=== PATIENT | female | born 1995 | race African-American/Black ===

== ENCOUNTER 2018-08-20 18:08 | Inpatient (IN) | payer OTHER ==
[2018-08-20] MEDS ORDERED: NACL 0.9% 3 ML SYG IV (19:00)
[2018-08-20] MEDS: morphine 4 MG/ML VIAL IV ×2 (19:05→21:59)
[2018-08-20 19:08] LABS: ADD MAN DIFF? NO
[2018-08-20 19:09] LABS: BASOPHILS % 0.2 % (0.0-2.0); EOSINOPHILS # 0.1 10^3/ul (0.0-0.5); HEMATOCRIT 30.7 % (37.0-47.0); HEMOGLOBIN 11.1 g/dl (12.0-16.0); LYMPHOCYTES # 1.8 10^3/ul (0.8-2.9); LYMPHOCYTES % 39.6 % (15.0-51.0); MEAN CORPUSCULAR HEMOGLOBIN 26.6 pg (29.0-33.0); MEAN CORPUSCULAR HGB CONC 36.2 g/dl (32.0-37.0); MEAN CORPUSCULAR VOLUME 73.4 fl (82.0-101.0); MEAN PLATELET VOLUME 9.2 fl (7.4-10.4); MONOCYTE # 0.3 10^3/ul (0.3-0.9); MONOCYTES % 7.6 % (0.0-11.0); NEUTROPHIL # 2.3 10^3/ul (1.6-7.5); NEUTROPHILS % 50.4 % (39.0-77.0); PLATELET COUNT 189 10^3/UL (140-415); RED BLOOD COUNT 4.18 10^6/ul (4.20-5.40); RED CELL DISTRIBUTION WIDTH 14.8 % (11.5-14.5)
[2018-08-20 19:09] LABS: WHITE BLOOD COUNT 4.5 10^3/ul (4.8-10.8)
[2018-08-20 19:31] LABS: ALANINE AMINOTRANSFERASE 18 IU/L (13-69); ALBUMIN 4.1 g/dl (3.3-4.9); ALBUMIN/GLOBULIN RATIO 1.28; ALKALINE PHOSPHATASE 71 IU/L (42-121); ANION GAP 9 (5-13); ASPARTATE AMINO TRANSFERASE 24 IU/L (15-46); BILIRUBIN,INDIRECT 1.1 mg/dl (0-1.1); BILIRUBIN,TOTAL 1.1 mg/dl (0.2-1.3); BLOOD UREA NITROGEN 3 mg/dl (7-20); CALCIUM 9.4 mg/dl (8.4-10.2); CARBON DIOXIDE 27 mmol/L (21-31); CHLORIDE 105 mmol/L (97-110); CREATININE 0.48 mg/dl (0.44-1.00); Estimated GFR > 60 mL/min (>60); GLUCOSE 89 mg/dl (70-220); POTASSIUM 3.9 mmol/L (3.5-5.1); SODIUM 141 mmol/L (135-144); TOTAL PROTEIN 7.3 g/dl (6.1-8.1)
[2018-08-20] MEDS: ALBUTEROL/IPRATROPIUM (NEB) 3 ML AMP HHN (20:37)
[2018-08-20] MEDS: SOD CHLORIDE 0.9% 1,000 ML IV (21:58)
[2018-08-20] MEDS: HEPARIN 5,000 UNIT/1 ML VIAL SC (22:04)
[2018-08-21] MEDS: morphine 4 MG/ML VIAL IV ×7 (01:04→23:10)
[2018-08-21] MEDS: ACETAMINOPHEN 325 MG TAB PO (04:26)
[2018-08-21 05:18] LABS: ADD MAN DIFF? NO
[2018-08-21 05:23] LABS: BASOPHILS % 0.5 % (0.0-2.0); EOSINOPHILS # 0.1 10^3/ul (0.0-0.5); EOSINOPHILS % 1.7 % (0.0-7.0); HEMOGLOBIN 10.3 g/dl (12.0-16.0); LYMPHOCYTES # 2.2 10^3/ul (0.8-2.9); LYMPHOCYTES % 51.9 % (15.0-51.0); MEAN CORPUSCULAR HEMOGLOBIN 26.1 pg (29.0-33.0); MEAN CORPUSCULAR HGB CONC 35.5 g/dl (32.0-37.0); MEAN CORPUSCULAR VOLUME 73.6 fl (82.0-101.0); MEAN PLATELET VOLUME 9.5 fl (7.4-10.4); MONOCYTE # 0.4 10^3/ul (0.3-0.9); MONOCYTES % 8.6 % (0.0-11.0); NEUTROPHIL # 1.6 10^3/ul (1.6-7.5); NEUTROPHILS % 37.1 % (39.0-77.0); PLATELET COUNT 183 10^3/UL (140-415); RED BLOOD COUNT 3.94 10^6/ul (4.20-5.40); RED CELL DISTRIBUTION WIDTH 14.8 % (11.5-14.5)
[2018-08-21 05:23] LABS: WHITE BLOOD COUNT 4.2 10^3/ul (4.8-10.8)
[2018-08-21 05:30] LABS: HEMOGLOBIN A1C 4.2 % (0-5.9)
[2018-08-21 05:43] LABS: ALANINE AMINOTRANSFERASE 18 IU/L (13-69); ALBUMIN 3.9 g/dl (3.3-4.9); ALBUMIN/GLOBULIN RATIO 1.34; ALKALINE PHOSPHATASE 57 IU/L (42-121); ANION GAP 11 (5-13); ASPARTATE AMINO TRANSFERASE 16 IU/L (15-46); BLOOD UREA NITROGEN 4 mg/dl (7-20); CALCIUM 8.9 mg/dl (8.4-10.2); CARBON DIOXIDE 29 mmol/L (21-31); CHLORIDE 102 mmol/L (97-110); Estimated GFR > 60 mL/min (>60); GLUCOSE 91 mg/dl (70-220); MAGNESIUM 1.7 mg/dl (1.7-2.5); POTASSIUM 3.6 mmol/L (3.5-5.1); SODIUM 142 mmol/L (135-144); TOTAL PROTEIN 6.8 g/dl (6.1-8.1)
[2018-08-21] MEDS: HEPARIN 5,000 UNIT/1 ML VIAL SC ×3 (05:58→23:12)
[2018-08-21] MEDS: OXYCODONE/ACETAMINOPHEN (5/325) TAB PO (06:08)
[2018-08-21] MEDS: ALBUTEROL/IPRATROPIUM (NEB) 3 ML AMP HHN ×3 (07:42→21:42)
[2018-08-21] MEDS: ONDANSETRON 4 MG INJ IV ×2 (09:26→16:15)
[2018-08-21] MEDS: SOD CHLORIDE 0.9% 1,000 ML IV ×3 (12:57→23:10)
[2018-08-22] MEDS: morphine 4 MG/ML VIAL IV ×6 (03:16→21:29)
[2018-08-22 05:24] LABS: ADD MAN DIFF? NO
[2018-08-22 05:30] LABS: BASOPHILS % 0.5 % (0.0-2.0); EOSINOPHILS # 0.1 10^3/ul (0.0-0.5); EOSINOPHILS % 2.1 % (0.0-7.0); HEMATOCRIT 28.2 % (37.0-47.0); HEMOGLOBIN 10.2 g/dl (12.0-16.0); LYMPHOCYTES # 1.8 10^3/ul (0.8-2.9); LYMPHOCYTES % 47.3 % (15.0-51.0); MEAN CORPUSCULAR HEMOGLOBIN 26.4 pg (29.0-33.0); MEAN CORPUSCULAR HGB CONC 36.2 g/dl (32.0-37.0); MEAN CORPUSCULAR VOLUME 72.9 fl (82.0-101.0); MEAN PLATELET VOLUME 9.4 fl (7.4-10.4); MONOCYTE # 0.3 10^3/ul (0.3-0.9); NEUTROPHIL # 1.6 10^3/ul (1.6-7.5); NEUTROPHILS % 42.1 % (39.0-77.0); PLATELET COUNT 171 10^3/UL (140-415); RED BLOOD COUNT 3.87 10^6/ul (4.20-5.40); RED CELL DISTRIBUTION WIDTH 14.9 % (11.5-14.5)
[2018-08-22 05:30] LABS: WHITE BLOOD COUNT 3.8 10^3/ul (4.8-10.8)
[2018-08-22 05:43] LABS: ANION GAP 10 (5-13); BLOOD UREA NITROGEN 3 mg/dl (7-20); CALCIUM 8.9 mg/dl (8.4-10.2); CARBON DIOXIDE 26 mmol/L (21-31); CHLORIDE 106 mmol/L (97-110); CREATININE 0.54 mg/dl (0.44-1.00); Estimated GFR > 60 mL/min (>60); GLUCOSE 109 mg/dl (70-220); POTASSIUM 3.5 mmol/L (3.5-5.1); SODIUM 142 mmol/L (135-144)
[2018-08-22] MEDS: HEPARIN 5,000 UNIT/1 ML VIAL SC ×3 (06:46→21:45)
[2018-08-22] MEDS: ALBUTEROL/IPRATROPIUM (NEB) 3 ML AMP HHN ×3 (07:31→20:07)
[2018-08-22] MEDS: SOD CHLORIDE 0.9% 1,000 ML IV (09:27)
[2018-08-23] MEDS: SOD CHLORIDE 0.9% 1,000 ML IV ×3 (00:50→22:21)
[2018-08-23] MEDS: morphine 4 MG/ML VIAL IV ×7 (02:10→22:22)
[2018-08-23 05:06] LABS: ADD MAN DIFF? NO
[2018-08-23 05:10] LABS: WHITE BLOOD COUNT 4.4 10^3/ul (4.8-10.8)
[2018-08-23 05:10] LABS: BASOPHILS % 0.5 % (0.0-2.0); EOSINOPHILS # 0.1 10^3/ul (0.0-0.5); EOSINOPHILS % 1.6 % (0.0-7.0); HEMATOCRIT 29.3 % (37.0-47.0); HEMOGLOBIN 10.4 g/dl (12.0-16.0); LYMPHOCYTES # 1.7 10^3/ul (0.8-2.9); MEAN CORPUSCULAR HEMOGLOBIN 25.9 pg (29.0-33.0); MEAN CORPUSCULAR HGB CONC 35.5 g/dl (32.0-37.0); MEAN CORPUSCULAR VOLUME 72.9 fl (82.0-101.0); MEAN PLATELET VOLUME 9.7 fl (7.4-10.4); MONOCYTE # 0.4 10^3/ul (0.3-0.9); MONOCYTES % 8.2 % (0.0-11.0); NEUTROPHIL # 2.3 10^3/ul (1.6-7.5); NEUTROPHILS % 51.5 % (39.0-77.0); PLATELET COUNT 165 10^3/UL (140-415); RED BLOOD COUNT 4.02 10^6/ul (4.20-5.40); RED CELL DISTRIBUTION WIDTH 14.9 % (11.5-14.5)
[2018-08-23] MEDS: HEPARIN 5,000 UNIT/1 ML VIAL SC ×3 (06:03→22:24)
[2018-08-23] MEDS: OXYCODONE/ACETAMINOPHEN (5/325) TAB PO (06:07)
[2018-08-23] MEDS: ALBUTEROL/IPRATROPIUM (NEB) 3 ML AMP HHN ×4 (07:43→19:45)
[2018-08-23] MEDS: ONDANSETRON 4 MG INJ IV (11:47)
[2018-08-23] MEDS ORDERED: AL HYDROX/MG HYDROX/SIMETH 30 ML CUP PO (12:30)
[2018-08-23] MEDS: PANTOPRAZOLE (EC) 40 MG TAB PO (14:07)
[2018-08-23] MEDS: ACETAMINOPHEN 325 MG TAB PO (16:33)
[2018-08-24] MEDS: morphine 4 MG/ML VIAL IV ×7 (01:31→22:06)
[2018-08-24] MEDS: PANTOPRAZOLE (EC) 40 MG TAB PO (05:02)
[2018-08-24] MEDS: HEPARIN 5,000 UNIT/1 ML VIAL SC ×3 (05:04→22:16)
[2018-08-24 05:46] LABS: ADD MAN DIFF? NO
[2018-08-24 05:56] LABS: BASOPHILS % 0.4 % (0.0-2.0); EOSINOPHILS # 0.1 10^3/ul (0.0-0.5); EOSINOPHILS % 1.8 % (0.0-7.0); HEMATOCRIT 28.5 % (37.0-47.0); HEMOGLOBIN 10.2 g/dl (12.0-16.0); LYMPHOCYTES # 1.8 10^3/ul (0.8-2.9); LYMPHOCYTES % 35.4 % (15.0-51.0); MEAN CORPUSCULAR HEMOGLOBIN 26.1 pg (29.0-33.0); MEAN CORPUSCULAR HGB CONC 35.8 g/dl (32.0-37.0); MEAN CORPUSCULAR VOLUME 72.9 fl (82.0-101.0); MONOCYTE # 0.4 10^3/ul (0.3-0.9); MONOCYTES % 7.3 % (0.0-11.0); NEUTROPHIL # 2.7 10^3/ul (1.6-7.5); NEUTROPHILS % 54.9 % (39.0-77.0); PLATELET COUNT 164 10^3/UL (140-415); RED BLOOD COUNT 3.91 10^6/ul (4.20-5.40); RED CELL DISTRIBUTION WIDTH 14.7 % (11.5-14.5)
[2018-08-24 06:13] LABS: ANION GAP 12 (5-13); BLOOD UREA NITROGEN 6 mg/dl (7-20); CALCIUM 8.8 mg/dl (8.4-10.2); CARBON DIOXIDE 27 mmol/L (21-31); CHLORIDE 103 mmol/L (97-110); CREATININE 0.51 mg/dl (0.44-1.00); Estimated GFR > 60 mL/min (>60); GLUCOSE 100 mg/dl (70-220); POTASSIUM 3.4 mmol/L (3.5-5.1); SODIUM 142 mmol/L (135-144)
[2018-08-24] MEDS: SOD CHLORIDE 0.9% 1,000 ML IV ×2 (07:59→23:50)
[2018-08-24] MEDS: ALBUTEROL/IPRATROPIUM (NEB) 3 ML AMP HHN ×4 (08:04→19:46)
[2018-08-24] MEDS: ONDANSETRON 4 MG INJ IV (11:00)
[2018-08-24] MEDS: POTASSIUM CHLORIDE (SR) 20 MEQ TAB PO (14:59)
[2018-08-25] MEDS: morphine 4 MG/ML VIAL IV ×8 (01:19→22:46)
[2018-08-25] MEDS: SOD CHLORIDE 0.9% 1,000 ML IV ×3 (03:58→21:12)
[2018-08-25] MEDS: ALBUTEROL/IPRATROPIUM (NEB) 3 ML AMP HHN ×4 (04:04→19:21)
[2018-08-25 05:49] LABS: ANION GAP 7 (5-13); BLOOD UREA NITROGEN 4 mg/dl (7-20); CALCIUM 9.3 mg/dl (8.4-10.2); CARBON DIOXIDE 27 mmol/L (21-31); CHLORIDE 107 mmol/L (97-110); CREATININE 0.55 mg/dl (0.44-1.00); Estimated GFR > 60 mL/min (>60); GLUCOSE 99 mg/dl (70-220); POTASSIUM 3.7 mmol/L (3.5-5.1); SODIUM 141 mmol/L (135-144)
[2018-08-25] MEDS: PANTOPRAZOLE (EC) 40 MG TAB PO (07:02)
[2018-08-25] MEDS: HEPARIN 5,000 UNIT/1 ML VIAL SC ×3 (07:04→22:53)
[2018-08-25] MEDS: ONDANSETRON 4 MG INJ IV (16:25)
[2018-08-25] MEDS: IOHEXOL 100 ML (17:38)
[2018-08-25] MEDS: SOD CHLORIDE 0.9% 100 ML (17:38)
[2018-08-25] MEDS: PIPER-TAZO 3.375 GM IV (PMX) 100 ML IVPB ×2 (18:13→22:46)
[2018-08-26] MEDS: morphine 4 MG/ML VIAL IV ×4 (01:36→10:58)
[2018-08-26] MEDS: DIPHENHYDRAMINE 50 MG INJ IV (01:51)
[2018-08-26 05:01] LABS: ADD MAN DIFF? NO
[2018-08-26] MEDS: PIPER-TAZO 3.375 GM IV (PMX) 100 ML IVPB ×3 (05:05→22:14)
[2018-08-26 05:08] LABS: WHITE BLOOD COUNT 5.4 10^3/ul (4.8-10.8)
[2018-08-26 05:08] LABS: BASOPHILS % 0.2 % (0.0-2.0); EOSINOPHILS # 0.1 10^3/ul (0.0-0.5); EOSINOPHILS % 1.3 % (0.0-7.0); HEMATOCRIT 28.5 % (37.0-47.0); HEMOGLOBIN 10.3 g/dl (12.0-16.0); LYMPHOCYTES # 0.9 10^3/ul (0.8-2.9); LYMPHOCYTES % 17.3 % (15.0-51.0); MEAN CORPUSCULAR HEMOGLOBIN 26.3 pg (29.0-33.0); MEAN CORPUSCULAR HGB CONC 36.1 g/dl (32.0-37.0); MEAN CORPUSCULAR VOLUME 72.9 fl (82.0-101.0); MONOCYTE # 0.4 10^3/ul (0.3-0.9); MONOCYTES % 7.1 % (0.0-11.0); NEUTROPHILS % 73.7 % (39.0-77.0); PLATELET COUNT 144 10^3/UL (140-415); RED BLOOD COUNT 3.91 10^6/ul (4.20-5.40); RED CELL DISTRIBUTION WIDTH 14.6 % (11.5-14.5)
[2018-08-26] MEDS: HEPARIN 5,000 UNIT/1 ML VIAL SC ×3 (05:13→22:17)
[2018-08-26 05:26] LABS: ANION GAP 8 (5-13); BLOOD UREA NITROGEN 4 mg/dl (7-20); CALCIUM 9.1 mg/dl (8.4-10.2); CARBON DIOXIDE 27 mmol/L (21-31); CHLORIDE 107 mmol/L (97-110); CREATININE 0.59 mg/dl (0.44-1.00); Estimated GFR > 60 mL/min (>60); GLUCOSE 88 mg/dl (70-220); POTASSIUM 3.9 mmol/L (3.5-5.1); SODIUM 142 mmol/L (135-144)
[2018-08-26] MEDS: PANTOPRAZOLE (EC) 40 MG TAB PO (06:34)
[2018-08-26] MEDS: ALBUTEROL/IPRATROPIUM (NEB) 3 ML AMP HHN ×3 (07:28→19:50)
[2018-08-26] MEDS ORDERED: morphine 1 MG/ML 30 ML (PCA) IV (11:30)
[2018-08-26] MEDS: SOD CHLORIDE 0.9% 1,000 ML IV ×2 (12:11→18:02)
[2018-08-26] MEDS: morphine 1 MG/ML 30 ML (PCA) IV (12:22)
[2018-08-26] MEDS: ONDANSETRON 4 MG INJ IV (12:27)
[2018-08-26] MEDS: MAGNESIUM CITRATE 300 ML BTL PO (12:30)
[2018-08-27] MEDS: morphine 1 MG/ML 30 ML (PCA) IV ×2 (00:56→13:31)
[2018-08-27] MEDS: DIPHENHYDRAMINE 50 MG INJ IV ×2 (01:37→23:54)
[2018-08-27] MEDS ORDERED: POLYETHYLENE GLYCOL 17 GM PACKET PO (03:30)
[2018-08-27] MEDS: POLYETHYLENE GLYCOL 17 GM PACKET PO (03:43)
[2018-08-27] MEDS: DOCUSATE SODIUM 100 MG CAP PO ×2 (03:43→21:32)
[2018-08-27] MEDS: SOD CHLORIDE 0.9% 1,000 ML IV ×2 (03:44→15:19)
[2018-08-27] MEDS: PANTOPRAZOLE (EC) 40 MG TAB PO (05:15)
[2018-08-27] MEDS: PIPER-TAZO 3.375 GM IV (PMX) 100 ML IVPB ×3 (05:15→21:32)
[2018-08-27] MEDS: HEPARIN 5,000 UNIT/1 ML VIAL SC ×3 (05:26→21:38)
[2018-08-27] MEDS: ALBUTEROL/IPRATROPIUM (NEB) 3 ML AMP HHN ×4 (05:28→20:02)
[2018-08-27] MEDS ORDERED: DOCUSATE SODIUM 100 MG CAP PO (09:00)
[2018-08-27] MEDS: CELECOXIB 100 MG CAP PO ×2 (11:03→21:32)
[2018-08-27] MEDS: ACETAMINOPHEN 325 MG TAB PO (16:16)
[2018-08-27] MEDS: ONDANSETRON 4 MG INJ IV (21:32)
[2018-08-28] MEDS: SOD CHLORIDE 0.9% 1,000 ML IV ×3 (01:41→21:58)
[2018-08-28] MEDS: morphine 1 MG/ML 30 ML (PCA) IV ×2 (01:57→12:00)
[2018-08-28 05:18] LABS: ADD MAN DIFF? NO
[2018-08-28 05:39] LABS: BASOPHILS % 0.6 % (0.0-2.0); EOSINOPHILS # 0.1 10^3/ul (0.0-0.5); EOSINOPHILS % 2.5 % (0.0-7.0); HEMATOCRIT 28.4 % (37.0-47.0); HEMOGLOBIN 10.1 g/dl (12.0-16.0); LYMPHOCYTES # 1.5 10^3/ul (0.8-2.9); LYMPHOCYTES % 43.1 % (15.0-51.0); MEAN CORPUSCULAR HGB CONC 35.6 g/dl (32.0-37.0); MEAN CORPUSCULAR VOLUME 73.2 fl (82.0-101.0); MEAN PLATELET VOLUME 9.7 fl (7.4-10.4); MONOCYTE # 0.3 10^3/ul (0.3-0.9); MONOCYTES % 7.9 % (0.0-11.0); NEUTROPHIL # 1.6 10^3/ul (1.6-7.5); NEUTROPHILS % 45.3 % (39.0-77.0); PLATELET COUNT 126 10^3/UL (140-415); RED BLOOD COUNT 3.88 10^6/ul (4.20-5.40); RED CELL DISTRIBUTION WIDTH 14.6 % (11.5-14.5)
[2018-08-28 05:39] LABS: WHITE BLOOD COUNT 3.5 10^3/ul (4.8-10.8)
[2018-08-28 06:01] LABS: ANION GAP 10 (5-13); BLOOD UREA NITROGEN 4 mg/dl (7-20); CALCIUM 9.3 mg/dl (8.4-10.2); CARBON DIOXIDE 30 mmol/L (21-31); CHLORIDE 103 mmol/L (97-110); CREATININE 0.63 mg/dl (0.44-1.00); Estimated GFR > 60 mL/min (>60); GLUCOSE 91 mg/dl (70-220); POTASSIUM 3.9 mmol/L (3.5-5.1); SODIUM 143 mmol/L (135-144)
[2018-08-28] MEDS: PIPER-TAZO 3.375 GM IV (PMX) 100 ML IVPB ×3 (06:39→21:08)
[2018-08-28] MEDS: PANTOPRAZOLE (EC) 40 MG TAB PO (06:40)
[2018-08-28] MEDS: HEPARIN 5,000 UNIT/1 ML VIAL SC (06:44)
[2018-08-28] MEDS: ALBUTEROL/IPRATROPIUM (NEB) 3 ML AMP HHN ×3 (07:20→20:08)
[2018-08-28] MEDS: POLYETHYLENE GLYCOL 17 GM PACKET PO (08:51)
[2018-08-28] MEDS: DOCUSATE SODIUM 100 MG CAP PO ×2 (08:53→21:08)
[2018-08-28] MEDS: CELECOXIB 100 MG CAP PO ×2 (08:53→21:08)
[2018-08-28] MEDS: ONDANSETRON 4 MG INJ IV (11:58)
[2018-08-28] MEDS: METOCLOPRAMIDE 10 MG INJ IV ×2 (17:44→23:36)
[2018-08-28] MEDS: DIPHENHYDRAMINE 25 MG CAP PO (22:43)
[2018-08-29] MEDS: morphine 1 MG/ML 30 ML (PCA) IV (02:42)
[2018-08-29] MEDS: DIPHENHYDRAMINE 50 MG INJ IV ×2 (03:06→22:19)
[2018-08-29] MEDS: SOD CHLORIDE 0.9% 1,000 ML IV ×3 (03:10→22:30)
[2018-08-29 05:05] LABS: ADD MAN DIFF? NO
[2018-08-29 05:09] LABS: WHITE BLOOD COUNT 4.5 10^3/ul (4.8-10.8)
[2018-08-29 05:09] LABS: BASOPHILS % 0.2 % (0.0-2.0); EOSINOPHILS # 0.1 10^3/ul (0.0-0.5); EOSINOPHILS % 2.7 % (0.0-7.0); HEMATOCRIT 28.6 % (37.0-47.0); HEMOGLOBIN 10.3 g/dl (12.0-16.0); LYMPHOCYTES # 1.5 10^3/ul (0.8-2.9); LYMPHOCYTES % 32.8 % (15.0-51.0); MEAN CORPUSCULAR HEMOGLOBIN 26.1 pg (29.0-33.0); MEAN CORPUSCULAR VOLUME 72.4 fl (82.0-101.0); MEAN PLATELET VOLUME 9.8 fl (7.4-10.4); MONOCYTE # 0.4 10^3/ul (0.3-0.9); MONOCYTES % 8.8 % (0.0-11.0); NEUTROPHIL # 2.5 10^3/ul (1.6-7.5); NEUTROPHILS % 55.1 % (39.0-77.0); PLATELET COUNT 149 10^3/UL (140-415); RED BLOOD COUNT 3.95 10^6/ul (4.20-5.40); RED CELL DISTRIBUTION WIDTH 14.5 % (11.5-14.5)
[2018-08-29 05:33] LABS: ANION GAP 8 (5-13); BLOOD UREA NITROGEN 3 mg/dl (7-20); CALCIUM 9.4 mg/dl (8.4-10.2); CARBON DIOXIDE 28 mmol/L (21-31); CHLORIDE 105 mmol/L (97-110); CREATININE 0.58 mg/dl (0.44-1.00); Estimated GFR > 60 mL/min (>60); GLUCOSE 90 mg/dl (70-220); POTASSIUM 3.9 mmol/L (3.5-5.1); SODIUM 141 mmol/L (135-144)
[2018-08-29] MEDS: PANTOPRAZOLE (EC) 40 MG TAB PO (06:00)
[2018-08-29] MEDS: METOCLOPRAMIDE 10 MG INJ IV ×3 (06:02→17:56)
[2018-08-29] MEDS: PIPER-TAZO 3.375 GM IV (PMX) 100 ML IVPB ×3 (06:02→22:20)
[2018-08-29] MEDS ORDERED: morphine 2 MG INJ IV (07:00)
[2018-08-29] MEDS: ALBUTEROL/IPRATROPIUM (NEB) 3 ML AMP HHN ×3 (07:48→19:46)
[2018-08-29] MEDS: CELECOXIB 100 MG CAP PO ×2 (08:01→20:09)
[2018-08-29] MEDS: DOCUSATE SODIUM 100 MG CAP PO ×2 (08:02→20:09)
[2018-08-29] MEDS: POLYETHYLENE GLYCOL 17 GM PACKET PO (08:03)
[2018-08-29] MEDS: morphine 2 MG INJ IV ×3 (11:37→22:27)
[2018-08-29] MEDS: PROPOFOL 20 ML (15:53)
[2018-08-29] MEDS: LIDOCAINE 2% (SDV) 5 ML INJ (15:53)
[2018-08-29] MEDS ORDERED: DIPHENHYDRAMINE 50 MG INJ IV (16:00)
[2018-08-29] MEDS ORDERED: ONDANSETRON 4 MG INJ IV (16:00)
[2018-08-29] MEDS ORDERED: HYDROmorphONE 1 MG/5 ML IV SYRINGE IV (16:00)
[2018-08-29] MEDS ORDERED: MEPERIDINE 25 MG INJ IV (16:00)
[2018-08-30] MEDS: METOCLOPRAMIDE 10 MG INJ IV ×3 (00:26→11:37)
[2018-08-30] MEDS: SOD CHLORIDE 0.9% 1,000 ML IV ×2 (03:58→04:45)
[2018-08-30] MEDS: morphine 2 MG INJ IV (04:45)
[2018-08-30] MEDS: PANTOPRAZOLE (EC) 40 MG TAB PO (05:08)
[2018-08-30] MEDS: PIPER-TAZO 3.375 GM IV (PMX) 100 ML IVPB (05:08)
[2018-08-30] MEDS: ALBUTEROL/IPRATROPIUM (NEB) 3 ML AMP HHN ×2 (08:06→15:49)
[2018-08-30] MEDS: POLYETHYLENE GLYCOL 17 GM PACKET PO (09:00)
[2018-08-30] MEDS: CELECOXIB 100 MG CAP PO (09:17)
[2018-08-30] MEDS: OXYCODONE/ACETAMINOPHEN (5/325) TAB PO (09:17)
[2018-08-30] MEDS: DOCUSATE SODIUM 100 MG CAP PO (09:17)
[2018-08-30 12:54] LABS: ADD MAN DIFF? NO
[2018-08-30] MEDS: LORAZEPAM 2 MG INJ IV ×2 (12:54→13:27)
[2018-08-30 12:59] LABS: ABNORMAL IP MESSAGE 1; BASOPHILS % 0.5 % (0.0-2.0); EOSINOPHILS # 0.1 10^3/ul (0.0-0.5); EOSINOPHILS % 2.3 % (0.0-7.0); HEMATOCRIT 31.6 % (37.0-47.0); HEMOGLOBIN 11.4 g/dl (12.0-16.0); LYMPHOCYTES # 1.6 10^3/ul (0.8-2.9); MEAN CORPUSCULAR HEMOGLOBIN 25.7 pg (29.0-33.0); MEAN CORPUSCULAR HGB CONC 36.1 g/dl (32.0-37.0); MEAN CORPUSCULAR VOLUME 71.3 fl (82.0-101.0); MEAN PLATELET VOLUME 10.3 fl (7.4-10.4); MONOCYTE # 0.6 10^3/ul (0.3-0.9); MONOCYTES % 10.1 % (0.0-11.0); NEUTROPHIL # 3.4 10^3/ul (1.6-7.5); NEUTROPHILS % 59.8 % (39.0-77.0); PLATELET COUNT 173 10^3/UL (140-415); RED BLOOD COUNT 4.43 10^6/ul (4.20-5.40); RED CELL DISTRIBUTION WIDTH 14.7 % (11.5-14.5)
[2018-08-30 12:59] LABS: WHITE BLOOD COUNT 5.8 10^3/ul (4.8-10.8)
[2018-08-30 13:15] LABS: POSITIVE DIFF @See below
[2018-08-30 13:27] LABS: TROPONIN-I < 0.012 ng/ml (0.000-0.120)
[2018-08-30] MEDS: DIPHENHYDRAMINE 50 MG INJ IV (13:33)
[2018-08-30 13:38] LABS: ALANINE AMINOTRANSFERASE 56 IU/L (13-69); ALBUMIN 4.5 g/dl (3.3-4.9); ALKALINE PHOSPHATASE 59 IU/L (42-121); ANION GAP 11 (5-13); ASPARTATE AMINO TRANSFERASE 42 IU/L (15-46); BILIRUBIN,INDIRECT 1.2 mg/dl (0-1.1); BILIRUBIN,TOTAL 1.2 mg/dl (0.2-1.3); BLOOD UREA NITROGEN 4 mg/dl (7-20); CALCIUM 9.7 mg/dl (8.4-10.2); CARBON DIOXIDE 24 mmol/L (21-31); CHLORIDE 106 mmol/L (97-110); CREATININE 0.55 mg/dl (0.44-1.00); Estimated GFR > 60 mL/min (>60); GLUCOSE 105 mg/dl (70-220); POTASSIUM 3.8 mmol/L (3.5-5.1); SODIUM 141 mmol/L (135-144); TOTAL PROTEIN 7.7 g/dl (6.1-8.1)
[2018-08-30] MEDS: SOD CHLORIDE 0.9% 500 ML IV (14:19)
== END 2018-08-30 17:00 | disposition home or self-care (01) | DRG 811 ==
LOC: MS1 08-25 13:05
PROVIDERS: Internal Medicine
PROC: 0DB68ZX Excision of Stomach, Via Natural or Artificial Opening Endoscopic, Diagnostic (ICD-10-PCS; principal; 2018-08-29 15:03)
DX: D57.00 Hb-SS disease with crisis, unspecified (principal); A35 Other tetanus; K92.0 Hematemesis; E70.8 Other disorders of aromatic amino-acid metabolism; R11.2 Nausea with vomiting, unspecified; K21.9 Gastro-esophageal reflux disease without esophagitis; J45.20 Mild intermittent asthma, uncomplicated; T45.0X5A Adverse effect of antiallergic and antiemetic drugs, initial encounter; Y92.239 Unspecified place in hospital as the place of occurrence of the external cause
CPT/HCPCS: 70450; 71046; 71275; 80048; 80053; 82962; 83036; 83735; 84484; 84703; 85025; 88305; 88312; 93880; 94640; 94664